=== PATIENT | female | born 1985 | race Caucasian/White ===

== ENCOUNTER → 2018-05-20 | Outpatient (CLI) | payer OTHER ==
[~2018-05-20] MED LIST: CATAPRES-TTS 10.1 MG PO; CHLORDIAZEPOXID25 M1 PO; GEODON60 MG PO; LEXAPRO20 MG PO; METHADONE HCL40 M1 PO; METHADONE HCL40 M2 PO; METHADONE10 MG/5 M1 PO; OMEPRAZOLE20 M2 PO; PERCOCET 325 MG1 TA2 PO; REMERON45 M1 PO; SEROQUEL300 MG PO; VIIBRYD20 M1 PO
[2018-05-20 11:56] LABS: URINE AMPHETAMINES < 1000 (1000ng/ml); URINE BARBITURATES < 200 (200ng/ml); URINE BENZODIAZEPINES > 200 (200ng/ml); URINE CANNABINOIDS (THC) < 50 (50ng/ml); URINE COCAINE < 300 (300ng/ml); URINE METHADONE > 300 (300ng/ml); URINE OPIATES < 300 (300ng/ml)
[2018-05-20 12:00] LABS: URINE PHENCYCLIDINE < 25 (25ng/ml)
== END | disposition home or self-care (01) ==
LOC: RESCLI 03:43
PROVIDERS: Student in an Organized Health Care Education/Training Program
DX: F13.230 Sedative, hypnotic or anxiolytic dependence with withdrawal, uncomplicated (principal); F41.9 Anxiety disorder, unspecified; F51.01 Primary insomnia; F17.200 Nicotine dependence, unspecified, uncomplicated; Z79.899 Other long term (current) drug therapy; Z71.6 Tobacco abuse counseling; Z88.8 Allergy status to other drugs, medicaments and biological substances